=== PATIENT | female | born 1975 | race Caucasian/White ===

== ENCOUNTER → 2016-03-24 | Outpatient (CLI) | payer BC ==
--- NOTE | 2016-03-24 13:41 | MA ---
Screening Digital Mammogram With iCAD Analysis Clinical Indications: Routine screening. A paternal aunt was diagnosed with breast cancer in her 50s. Technique: Standard cephalocaudal projections are obtained. Digital breast tomosynthesis was performe d in the MLO projection with reconstruction at 1.0 mm slice thickness and composite MLO views reconst ructed. This examination is processed by the iCAD computer aided detection system. Comparison: March 2015, December 2013. Breast density: Type C: Heterogeneously dense. Findings: CAD was reviewed. No masses, suspicious calcifications or secondary signs of malignancy are seen. There has been no significant change in the appearance of either breast. Impression: Negative mammogram. BI-RADS 1. Recommendation: Routine mammographic screening in one year as long as physical examination is negativ e in this patient with heterogeneously dense breast parenchyma. [facility] will send a result letter to the patient. Negative mammography should not preclude additional workup of a clinically suspicious finding. The patient's information is entered into a reminder system with a target due date for her next mammo gram.
== END ==
LOC: FIMAGING 09:04
DX: Z12.31 Encounter for screening mammogram for malignant neoplasm of breast (principal); Z80.3 Family history of malignant neoplasm of breast
CPT/HCPCS: G0202

== ENCOUNTER 2016-04-04 11:59 | Emergency (ER) | payer BC ==
[2016-04-04 12:06] VITALS: RESP 18; TEMP 98.4
--- NOTE | 2016-04-04 12:16 | EDPHY ---
H & P Time Seen by Provider: 04/04/16 12:16 HPI/ROS: CHIEF COMPLAINT: Dizzy lightheaded and tachycardic HISTORY OF PRESENT ILLNESS: This 40-year-old woman had surgery on Thursday with Dr. Nikhil kirk plastic surgeon with abdominal plasty as well as breast surgery and liposuction. She has felt dizzy lightheaded and tachycardic for the past 3 and half days. She has been able to drink water but not eat much food. Her symptoms are worsening today and she is increasingly dizzy especially with standing. Not associated with chest pain or shortness of breath or actual syncope. She did change from Mant[place] to Ultram yesterday but still is symptomatic. REVIEW OF SYSTEMS: Eye: no change in vision ENT: no sore throat Cardiac: no chest pain or syncope Pulmonary: no cough or SOB Abdomen: no vomiting, diarrhea, abdominal pain Musculoskeletal: no back pain Skin: Areas of bruising but incisions were just examined and are clean dry and intact. Neuro: Mild headache , not sudden onset or worst of life. Constitutional: no fever : no urinary symptoms A comprehensive 10 point review of systems is otherwise negative aside from elements mentioned in the history of present illness. PAST MEDICAL HISTORY: Negative except for procedure as above. Social history: Negative for family history of DVT or PE. Nurse at [employer]. General Appearance: Alert and conversant, cooperative. Eyes: No scleral icterus. ENT, Mouth: Normal mucous membranes. Respiratory: Normal respiratory effort, breath sounds equal, lungs are clear to auscultation. Cardiovascular: Regular rate and rhythm. Rate approximately 100. Gastrointestinal: Abdomen is soft and non tender. Neurological: Alert and oriented x3. Normally conversant. Face symmetric, normal movement and sensation in all extremities. Skin: Patient's abdominal wound was not undressed. She has 4 dressings on her back and 1 on her right hip which were not removed. She has multiple areas of bruising including on both breasts and on the flanks. Musculoskeletal: No peripheral edema and no joint swelling. No calf tenderness. Psychiatric: Not agitated. Emergency Department course/MDM: Patient is specifically concerned about pulmonary embolism. Other things or considered including but not limited to hypovolemia, anemia, hyponatremia with water intake but not much food. Plan for CBC chemistry panel, test. Plan for CT scanning if normal creatinine. Plan for IV hydration if sodium is normal. 1344: Results discussed. Clinically does not have likely pneumonia. Not coughing or short of breath, no fever. We discussed pro/con of blood transfusion and she does not want it; I think that is reasonable as long as she has clinical follow-up. She is referred to her plastic surgeon or her OBGYN Aurea Flores or the core laying machine operator on-call. Oral iron intake. Respiratory therapy came to the ED to instruct on incentive spirometry. Constitutional: Initial Vital Signs Temperature (C) 36.9 C 04/04/16 12:03 Heart Rate 106 H 04/04/16 12:03 Respiratory Rate 18 04/04/16 12:03 Blood Pressure 130/84 H 04/04/16 12:03 O2 Sat (%) 93 04/04/16 12:03 O2 Delivery Mode Room Air Allergies/Adverse Reactions: banana [Banana] Allergy (Mild, Verified 04/04/16 12:01) Hives latex [Latex] Allergy (Unknown, Verified 04/04/16 12:01) UNK Honey Allergy (Severe, Uncoded 01/12/09 21:21) Anaphylaxis [place] Allergy (Mild, Uncoded 01/12/09 21:22) Hives Home Medications: Medication Instructions Recorded Keflex 04/04/16 Toradol 04/04/16 Ultram 04/04/16 Medical Decision Making - Diagnostics EKG Interpretation: 12-lead EKG interpreted by me; official reading is in trace master. My interpretation is sinus tachycardia with nonspecific lateral T-wave abnormalities. Imaging: Chest CT angio shows bilateral lower lobe infiltrates at 1336; no PE or other abnormality. Per Ghada, reviewed personally by myself. My clinical impression is this is more likely to be atelectasis than infectious process. Differential Diagnosis: Differential considered including but not limited to pulmonary embolism, anemia , hypokalemia, other metabolic, dysrhythmia. Consult/Admit Bed Type: Swail 1337 - Data Points Laboratory Results: Laboratory Results 04/04/16 12:22 04/04/16 12:22 04/04/16 12:22 WBC 5.11 10^3/uL (3.80-9.50) RBC 2.61 L 10^6/uL (4.18-5.33) Hgb 7.4 L g/dL (12.6-16.3) Hct 22.7 L % (38.0-47.0) MCV 87.0 fL (81.5-99.8) MCH 28.4 pg (27.9-34.1) MCHC 32.6 g/dL (32.4-36.7) RDW 14.1 % (11.5-15.2) Plt Count 186 10^3/uL (150-400) MPV 10.9 fL (8.7-11.7) Neut % (Auto) 52.1 % (39.3-74.2) Lymph % (Auto) 34.4 % (15.0-45.0) Quay % (Auto) 8.4 % (4.5-13.0) Eos % (Auto) 3.9 % (0.6-7.6) Baso % (Auto) 0.4 % (0.3-1.7) Nucleat RBC Rel Count 0.4 H % (0.0-0.2) Absolute Neuts (auto) 2.66 10^3/uL (1.70-6.50) Absolute Lymphs (auto) 1.76 10^3/uL (1.00-3.00) Absolute Monos (auto) 0.43 10^3/uL (0.30-0.80) Absolute Eos (auto) 0.20 10^3/uL (0.03-0.40) Absolute Basos (auto) 0.02 10^3/uL (0.02-0.10) Absolute Nucleated RBC 0.02 H 10^3/uL (0-0.01) Immature Gran % 0.8 % (0.0-1.1) Immature Gran # 0.04 10^3/uL (0.00-0.10) Sodium 143 mEq/L (134-144) Potassium 3.5 mEq/L (3.5-5.2) Chloride 108 mEq/L (97-110) Carbon Dioxide 28 mEq/l (22-31) Anion Gap 7 mEq/L (8-16) BUN 5 L mg/dL (7-23) Creatinine 0.6 mg/dL (0.6-1.0) Estimated GFR > 60 Glucose 95 mg/dL (70-100) Calcium 7.8 L mg/dL (8.5-10.4) Beta HCG, Qual NEGATIVE Departure - Departure Disposition: Home, Routine, Self-Care Clinical Impression: Anemia Qualifiers: Anemia type: unspecified type Qualifier Code: (D64.9) Anemia, unspecified Condition: Good Instructions: Anemia (ED) Additional Instructions: You need to have your hemoglobin/hematocrit checked in 1-[address] Gabriel to make sure it's increasing appropriately. Breathing and IS per Respiratory therapist instructions. Referrals: Jeremías Gabriel MD [Medical Doctor] - As per Instructions Aurea Flores MD [Medical Doctor] - As per Instructions Barak Small MD [Medical Doctor] - As per Instructions
--- NOTE | 2016-04-04 12:34 | CPEKG ---
Heart Rate: 102 RR Interval: 588 P-R Interval: 168 QRSD Interval: 88 QT Interval: 352 QTC Interval: 459 P [place]: 60 QRS [place]: 45 T Wave [place]: -36 EKG Severity - BORDERLINE ECG - EKG Impression: SINUS TACHYCARDIA EKG Impression: BORDERLINE T ABNORMALITIES, DIFFUSE LEADS Electronically Signed By: Logan Escobar 04-Apr-2016 13:00:35
[2016-04-04 12:50] LABS: % IMMATURE GRANULYOCYTES 0.8 % (0.0-1.1); ABSOLUTE IMMATURE GRANULOCYTES 0.04 10^3/uL (0.00-0.10); ABSOLUTE NRBC COUNT 0.02 10^3/uL (0-0.01); ADD DIFF? NO; ADD MORPH? NO; ADD SCAN? NO; ATYPICAL LYMPHOCYTE FLAG 20 (0-99); FRAGMENT RBC FLAG 0 (0-99); HEMATOCRIT 22.7 % (38.0-47.0); HEMOGLOBIN 7.4 g/dL (12.6-16.3); LEFT SHIFT FLG 0 (0-99); LIPEMIA HEMOLYSIS FLAG 80 (0-99); MEAN CELL HEMOGLOBIN 28.4 pg (27.9-34.1); MEAN CELL HEMOGLOBIN CONCENTR. 32.6 g/dL (32.4-36.7); MEAN PLATELET VOLUME 10.9 fL (8.7-11.7); NRBC-AUTO% 0.4 % (0.0-0.2); PLATELET CLUMPS FLAG 0 (0-99); PLATELET COUNT 186 10^3/uL (150-400); RED BLOOD CELL COUNT 2.61 10^6/uL (4.18-5.33); RED CELL DISTRIBUTION WIDTH 14.1 % (11.5-15.2)
[2016-04-04 12:56] LABS: ANION GAP 7 mEq/L (8-16); CALCIUM 7.8 mg/dL (8.5-10.4); CARBON DIOXIDE 28 mEq/l (22-31); CHLORIDE 108 mEq/L (97-110); CREATININE 0.6 mg/dL (0.6-1.0); GLOMERULAR FILTRATION RATE > 60; GLUCOSE 95 mg/dL (70-100); POTASSIUM 3.5 mEq/L (3.5-5.2); SODIUM 143 mEq/L (134-144)
[2016-04-04] MEDS ORDERED: IOPAMIDOL (ISOVUE 370) 100 ML BTL IV ONE (13:05)
--- NOTE | 2016-04-04 13:41 | CT ---
CT Chest Pulmonary Angiogram With Contrast Enhancement and Multiplanar Reconstructions at 1324 hours History: Dyspnea, tachycardia, dizziness, recent surgery Comparison: None. Technique: 1.25 mm axial multidetector helical CT angiogram imaging was performed through the chest w hile 90 mL Isovue-370 were injected intravenously without complication. The images were then transfe rred to an independent workstation where multiplanar and three-dimensional reconstructions were perfo rmed by the interpreting physician and reviewed at multiple windows. Dose reduction techniques were u tilized. CT Pulmonary Angiogram Findings: No CT evidence of definite pulmonary thromboemboli. No aortic aneur ysm or dissection. Heart is normal in size. CT Chest Findings: Bilateral lower lobe alveolar infiltrates left greater than right which may repres ent pneumonia or less likely atelectasis with minimal bilateral pleural effusions. No significant med iastinal or hilar adenopathy. No destructive osseous lesions. No pneumothorax. Impression: 1. No definite pulmonary thromboemboli. 2. No aortic aneurysm or dissection. 3. Bilateral lower lobe pneumonitis with minimal pleural effusions. Findings and recommendations discussed with Dr. Logan Escobar at 1330 hours.
[2016-04-04 14:22] VITALS: BP 133/87; PULSE 108; O2SAT 94
== END 2016-04-04 14:22 | disposition home or self-care (01) ==
DX: D64.9 Anemia, unspecified (principal); Z91.040 Latex allergy status
CPT/HCPCS: Q9967

== ENCOUNTER → 2017-02-18 | Outpatient (CLI) | payer OTHER | LOC: CIMAGING 14:33 | PROVIDERS: ATTEND Physical Medicine & Rehabilitation | DX: M54.2 Cervicalgia (principal) | CPT/HCPCS: 72052-PO ==

== ENCOUNTER → 2017-03-25 | Outpatient (CLI) | payer BC | LOC: FIMAGING 08:20 | PROVIDERS: ATTEND Obstetrics & Gynecology | DX: Z12.31 Encounter for screening mammogram for malignant neoplasm of breast (principal) ==

== ENCOUNTER 2017-05-12 15:50 | Emergency (ER) | payer BC ==
--- NOTE | 2017-05-12 16:15 | CPEKG ---
Heart Rate: 70 RR Interval: 857 P-R Interval: 164 QRSD Interval: 86 QT Interval: 396 QTC Interval: 428 P Lincoln: 58 QRS [place]: 49 T Wave Lincoln: 36 EKG Severity - NORMAL ECG - EKG Impression: SINUS RHYTHM Electronically Signed By: Bessie Olvera 12-May-2017 23:06:46
[2017-05-12] MEDS ORDERED: ONDANSETRON 4 MG/2 ML VIAL IVP ONE (16:35)
--- NOTE | 2017-05-12 16:41 | EDPHY ---
H & P Time Seen by Provider: 05/12/17 16:20 HPI/ROS: CHIEF COMPLAINT: Exhaustion, dizziness, lightheadedness, nausea HISTORY OF PRESENT ILLNESS: The patient is a 41 y/o female with a history of depression and anemia complaining of dizziness, lightheadedness, exhaustion, nausea, and foggy thinking for the past 3 weeks. She noticed foggy thinking 3 weeks ago such as when she was driving and forgot to turn onto her street. A week ago, she developed nausea, dizziness, stomach cramping, and exhaustion. The dizziness is a transient, "room spinning" sensation accompanied by lightheadedness. The nausea is constant and interferes with her ability to eat. In addition she has associated bloating, a feeling of needing to take deep breaths, palpitations,and a bowel movement every other day. She denies recent weight loss, fever, or any other associated symptoms. She started a diet high in protein, little dairy, and some fruit a month ago but she has been on this diet several times without any negative effects. REVIEW OF SYSTEMS: A 10 point review of systems was performed and is negative with the exception of the elements mentioned in the history of present illness. Past Medical/Surgical History: Anemia, depression Social History: , works at [employer], non-smoker Smoking Status: Never smoked Physical Exam: General Appearance: Alert, pleasant Eyes: Pupils equal and round, no conjunctival pallor or injection, no nystagmus ENT, Mouth: Mucous membranes moist Neck: Normal inspection Respiratory: Lungs are clear to auscultation Cardiovascular: Regular rate and rhythm Gastrointestinal: Abdomen is soft and non-tender Neurological: A&O, nonfocal exam Skin: Warm and dry, no rash Extremities: Nontender, no pedal edema Psychiatric: Mood and affect normal Constitutional: Initial Vital Signs Temperature (C) 36.6 C 05/12/17 16:00 Heart Rate 69 05/12/17 16:00 Respiratory Rate 18 05/12/17 16:00 Blood Pressure 143/90 H 05/12/17 16:00 O2 Sat (%) 97 05/12/17 16:00 O2 Delivery Mode Room Air Allergies/Adverse Reactions: banana [Banana] Allergy (Mild, Verified 05/12/17 15:59) Hives latex [Latex] Allergy (Unknown, Verified 05/12/17 15:59) UNK Honey Allergy (Severe, Uncoded 01/12/09 21:21) Anaphylaxis [place] Allergy (Mild, Uncoded 01/12/09 21:22) Hives Home Medications: Medication Instructions Recorded Lexapro 10 MG 05/12/17 Ondansetron Odt [Zofran Odt 4 mg 4 mg PO Q4 PRN #10 tab 05/12/17 (*)] Medical Decision Making - Diagnostics EKG Interpretation: EKG interpreted by me reveals normal sinus rhythm, rate 70, no ST/T changes. Interpretation: normal EKG Imaging Results: Chest X-Ray 05/12/17 16:36 Impression: Suspect airways disease. No pneumonia. ED Course/Re-evaluation: The patient presents with dizziness, foggy thinking, nausea, stomach cramps, and exhaustion for the past 3 weeks. Physical exam is normal. Plan for labs, chest X-ray, and EKG. 1708: The patient's X-ray and EKG are normal. Labs are unremarkable. Feels better after IV Zofran. Unclear etiology of symptoms. There is no evidence of severe anemia, electrolyte abnormality, hyperglycemia, intra-abdominal infection /cholecystitis. Query acute gastritis, will start Zantac OTC, rx for Zofran ODT. I feel she can be discharged home with follow up with her primary care provider in 3-4 days. She agrees to this course of action. Differential Diagnosis: Differential diagnosis includes though is not limited to cardiac dysrhythmia, CVA, TIA, GI bleed, sepsis, hypoglycemia. - Data Points Laboratory Results: Laboratory Results 05/12/17 16:40 05/12/17 16:40 Medications Given: Discontinued Medications Ondansetron HCl (Zofran) 4 mg IVP EDNOW ONE Stop: 05/12/17 16:36 Last Admin: 05/12/17 16:59 Dose: 4 mg Departure - Departure Disposition: Home, Routine, Self-Care Clinical Impression: Dizziness, Nausea Condition: Good Instructions: Dizziness (ED) Additional Instructions: 1. Take Zofran as directed as needed for nausea. 2. Follow-up with your primary care provider 3. Return to the ED for any worsening of condition. Referrals: Wilma Simental MD [Primary Care Provider] - As per Instructions Prescriptions: Ondansetron Odt [Zofran Odt 4 mg (*)] 4 mg PO Q4 PRN #10 tab PRN Reason: Nausea Report Scribed for: Bessie Olvera Report Scribed by: Jeanette Messer Date of Report: 05/12/17 Time of Report: 16:42 Physician Review and Approval Statement: 05/12/17 16:42 Portions of this note were transcribed by a certified ophthalmic medical technician. I personally performed a history, physical exam, medical decision making, and confirmed accuracy of information the transcribed note.
[2017-05-12 16:57] LABS: PLATELET COUNT 158 10^3/uL (150-400)
[2017-05-12 18:05] VITALS: BP 124/72; PULSE 59; RESP 14; TEMP 98.2; O2SAT 94
== END 2017-05-12 18:05 | disposition home or self-care (01) ==
DX: R42 Dizziness and giddiness (principal); R11.0 Nausea; Z91.040 Latex allergy status
CPT/HCPCS: 96374; J2405

== ENCOUNTER → 2018-01-27 | Outpatient (CLI) | payer BC | LOC: FIMAGING 09:57 | PROVIDERS: ATTEND Obstetrics & Gynecology | DX: Z12.31 Encounter for screening mammogram for malignant neoplasm of breast (principal) ==